=== PATIENT | male | born 1980 | race Caucasian/White ===

== ENCOUNTER 2023-12-07 08:47 | Emergency (ER) | payer MEDICAID ==
[~2023-12-07] VITALS: Ht 167.6 cm; Wt 68.2 kg
[2023-12-07 08:53] VITALS: BP 155/100; PULSE 110; RESP 16; TEMP 98.4; O2SAT 99
[2023-12-07 10:38] LABS: URINE AMPHETAMINE SCREEN POSITIVE (Neg); URINE BARBITUATE SCREEN NEGATIVE (Neg); URINE BENZODIAZEPINES SCREEN NEGATIVE (Neg); URINE CANNABINOID SCREEN NEGATIVE (Neg); URINE COCAINE SCREEN NEGATIVE (Neg); URINE METHADONE SCREEN NEGATIVE (Neg); URINE OPIATE SCREEN NEGATIVE (Neg); URINE PHENCYCLIDINE SCREEN NEGATIVE (Neg)
[2023-12-07] MEDS ORDERED: HYDR-3686 PO (18:25)
== END 2023-12-07 10:10 | disposition left against medical advice (07) ==
LOC: ER 08:47
DX: F19.10 Other psychoactive substance abuse, uncomplicated (principal); Z53.21 Procedure and treatment not carried out due to patient leaving prior to being seen by health care provider
CPT/HCPCS: 80305

== ENCOUNTER 2023-12-07 17:52 | Emergency (ER) | payer MEDICAID ==
[~2023-12-07] VITALS: Ht 167.6 cm; Wt 64.0 kg
[2023-12-07 17:53] VITALS: BP 148/92; PULSE 114; RESP 16; O2SAT 99
[2023-12-07] MEDS ORDERED: HYDR-3686 PO (18:25)
[2023-12-07 18:41] VITALS: TEMP 97.5
[2023-12-07] MEDS: hydrOXYzine 25 MG tablet PO ONE (18:53)
== END 2023-12-07 18:57 | disposition home or self-care (01) ==
LOC: ER 17:53
DX: F15.10 Other stimulant abuse, uncomplicated (principal)
CPT/HCPCS: 99283; Q0177